=== PATIENT | female | born 1995 ===

== ENCOUNTER 2021-10-27 12:46 | Emergency (ER) | payer SELFPAY ==
[2021-10-27 12:49] VITALS: BP 110/66
--- NOTE | 2021-10-29 09:34 | Electrocardiograph Report ---
[facility] Test Date: 2021-10-27 Test Time: 12:59:08 Pat Name: CHRISTIANA CUI Department: Room: Gender: F [employer]: MC : 1995 Requested By: CYNTHIA JONES Order Number: [id number] Reading MD: Grayson Teixeira Measurements Intervals [place] Rate: 69 P: 32 MT: 148 QRS: 56 QRSD: 82 T: 44 QT: 407 QTc: 436 Interpretive Statements Sinus rhythm, with sinus arrhythmia. Nonspecific T abnormalities, anterior leads No previous ECG available for comparison Electronically Signed On 10-29-2021 9:33:30 EDT by Grayson Teixeira
== END 2021-10-27 20:55 | disposition left against medical advice (07) ==
LOC: ED 12:46
DX: R07.89 Other chest pain (principal); Z53.21 Procedure and treatment not carried out due to patient leaving prior to being seen by health care provider
CPT/HCPCS: 93005